=== PATIENT | female | born 1960 | race Caucasian/White ===

== ENCOUNTER 2020-08-02 21:16 | Emergency (ER) | payer OTHER ==
[~2020-08-02] VITALS: Ht 157.5 cm; Wt 65.3 kg
--- NOTE | 2020-08-02 21:20 | NUR ---
PT BIBSELF C/O POSSIBLE THROAT FOREIGN BODY. PT STATES "I HAVE A FISH BONE STUCK IN MY THROAT" S/P EATING MILK FISH. PT AAOX4. RESPIRATIONS EVEN AND UNLABORED. O2 SAT 98% ROOM AIR. NO ACUTE DISTRESS NOTED AT THIS TIME. WILL CONTINUE TO MONITOR
--- NOTE | 2020-08-02 21:48 | NUR ---
RADIOLOGY AT BEDSIDE FOR XRAY
--- NOTE | 2020-08-02 22:53 | NUR ---
Patient discharged to home in stable condition. Written and verbal after care instructions given. Patient verbalizes understanding of instruction.Pt wheeled to car via wheelchair
[2020-08-02 22:54] VITALS: BP 119/64
== END 2020-08-02 22:55 | disposition home or self-care (01) ==
LOC: ER 21:17
DX: R09.89 Other specified symptoms and signs involving the circulatory and respiratory systems (principal); G20 Parkinson's disease
CPT/HCPCS: 70360-TC